=== PATIENT | male | born 1970 | race Caucasian/White ===

== ENCOUNTER 2022-08-01 11:41 | Emergency (ER) | payer BC ==
[2022-08-01] MEDS ORDERED: Lidocaine 1% w/Epinephrine 1:100K 20 ML VIAL ONE (12:16)
[2022-08-01] MEDS ORDERED: Lidocaine 1% (PF) 30 ML VIAL ONE (12:17)
[2022-08-01] MEDS ORDERED: Boostrix 0.5 ML (Tdap) VIAL (>/=7 yrs of age) ONE (12:45)
[2022-08-01] MEDS ORDERED: Bacitracin 1 PK ONE (12:50)
== END 2022-08-01 13:05 | disposition home or self-care (01) ==
LOC: MADERS 11:41
DX: S61.412A Laceration without foreign body of left hand, initial encounter (principal); Z23 Encounter for immunization; W22.8XXA Striking against or struck by other objects, initial encounter
CPT/HCPCS: 12001; 90471; 90715; J2001

== ENCOUNTER 2022-08-08 15:14 | Emergency (ER) | payer BC, OTHER | END 2022-08-08 15:47 | disposition home or self-care (01) | LOC: MADERS 15:14 | DX: S61.012D Laceration without foreign body of left thumb without damage to nail, subsequent encounter (principal); Z48.02 Encounter for removal of sutures ==